=== PATIENT | male | born 1990 | race Caucasian/White ===

== ENCOUNTER 2018-05-11 11:41 | Inpatient (IN) | payer OTHER ==
[~2018-05-11] VITALS: Ht 190.5 cm; Wt 86.9 kg
[2018-05-11] MEDS ORDERED: MORPHINE SULFATE 4 MG/ML, 1ML ONE ×2 (11:49→12:13)
[2018-05-11] MEDS ORDERED: ONDANSETRON 2MG/ML, 2ML ONE ×2 (11:49→17:12)
[2018-05-11] MEDS: MORPHINE SULFATE 4 MG/ML, 1ML IVPush PRN ×2 (11:53→12:16)
[2018-05-11] MEDS ORDERED: SODIUM CHLORIDE FLUSH 10ML SYR IVF ONE (12:00)
[2018-05-11] MEDS ORDERED: PLEASE ENTER ALLERGIES MC SCH (12:00)
[2018-05-11] MEDS ORDERED: ONDANSETRON 2MG/ML, 2ML IVPush ONE (12:00)
[2018-05-11] MEDS ORDERED: PRED5TAB PO (12:26)
[2018-05-11] MEDS ORDERED: HYDROmorphone 2 MG/ML, 1ML ONE ×6 (12:37→23:46)
[2018-05-11] MEDS ORDERED: HYDROmorphone 1 MG/ML, 1ML IV ONE ×2 (13:00→14:00)
[2018-05-11] MEDS ORDERED: HYDROmorphone 1 MG/ML, 1ML IV PRN (16:00)
[2018-05-11] MEDS ORDERED: GABAPENTIN 300 MG CAPSULE ONE (17:07)
[2018-05-11] MEDS ORDERED: OxyconTIN ER 20 MG TAB.ER ONE (17:07)
[2018-05-11] MEDS ORDERED: ACETAMINOPHEN 500 MG TABLET ONE (17:07)
[2018-05-11] MEDS ORDERED: HYDROCORTISONE 100 MG INJ. ONE (17:10)
[2018-05-11] MEDS ORDERED: ROCURONIUM 10 MG/ML,10ML ONE (17:12)
[2018-05-11] MEDS ORDERED: PROPOFOL 10 MG/ML, 20ML ONE (17:12)
[2018-05-11] MEDS ORDERED: GLYCOPYRROLATE 0.2MG/1ML, 5ML ONE (17:12)
[2018-05-11] MEDS ORDERED: NEOSTIGMINE 1 MG/ML, 10ML ONE (17:12)
[2018-05-11] MEDS ORDERED: CEFAZOLIN 1,000 MG ONE (17:12)
[2018-05-11] MEDS ORDERED: FENTANYL PF 250 MCG/5ML ONE (17:15)
[2018-05-11] MEDS ORDERED: MEPERIDINE/PF 50 MG/ML ONE (19:01)
[2018-05-11] MEDS: MEPERIDINE/PF 25MG/0.5ML IVPush PRN ×2 (19:07→19:40)
[2018-05-11] MEDS: HYDROmorphone 1 MG/ML, 1ML IV PRN ×4 (19:09→19:30)
[2018-05-11] MEDS ORDERED: FENTANYL PF 100 MCG/2ML ONE ×2 (19:10→19:31)
[2018-05-11] MEDS: FENTANYL PF 100 MCG/2ML IV PRN ×4 (19:13→19:43)
[2018-05-11] MEDS ORDERED: LABETALOL 5MG/ML, 20ML IV PRN (19:30)
[2018-05-11] MEDS ORDERED: LORazepam 2 MG/ML, 1ML IVPush PRN (19:30)
[2018-05-11] MEDS ORDERED: OXYcodone 5 MG/5 ML ORAL.SOL UDC PO PRN ×2 (19:30→21:30)
[2018-05-11] MEDS ORDERED: ALBUTEROL SULFATE 2.5 MG/3 ML NPPB PRN (19:30)
[2018-05-11] MEDS ORDERED: hydrALAzine 20 MG/ML, 1ML IV PRN (19:30)
[2018-05-11] MEDS ORDERED: PROMETHAZINE 25 MG/ML, 1ML IV PRN (19:30)
[2018-05-11] MEDS ORDERED: OXYcodone 5 MG/5 ML ORAL.SOL UDC ONE (19:31)
[2018-05-11] MEDS ORDERED: MAGNESIUM HYDROXIDE 8%, 30ML UDC PO PRN (21:30)
[2018-05-11] MEDS ORDERED: SENNA/DOCUSATE TABLET PO PRN (21:30)
[2018-05-11] MEDS: D5%-LACTATED RINGERS 1,000 ML IV SCH (21:30)
[2018-05-11] MEDS ORDERED: ONDANSETRON 2MG/ML, 2ML IV PRN (21:30)
[2018-05-11] MEDS ORDERED: ALUMINUM/MAG/SIMETHICONE 30 ML UDC PO PRN (21:30)
[2018-05-11] MEDS ORDERED: BISACODYL 10 MG SUPP PR PRN (21:30)
[2018-05-11] MEDS ORDERED: DIPHENHYDRAMINE 25 MG CAPSULE PO PRN (21:30)
[2018-05-11] MEDS: HYDROcodone/APAP 10/325 MG TABLET PO PRN (21:57)
[2018-05-12 00:41] VITALS: BP 105/48
[2018-05-12] MEDS: HYDROcodone/APAP 10/325 MG TABLET PO PRN ×3 (02:23→12:03)
[2018-05-12] MEDS: CEFAZOLIN PMX 2GM/50ML 50 ML IVPB SCH ×3 (02:23→19:38)
[2018-05-12] MEDS ORDERED: HYDROmorphone 2 MG/ML, 1ML ONE ×3 (05:49→14:28)
[2018-05-12] MEDS: HYDROmorphone 1 MG/ML, 1ML IV PRN ×3 (05:58→14:36)
[2018-05-12] MEDS: D5%-LACTATED RINGERS 1,000 ML IV SCH ×3 (06:00→20:43)
[2018-05-12 07:40] VITALS: BP 125/62
[2018-05-12] MEDS: SODIUM CHLORIDE FLUSH 10ML SYR IVF SCH ×2 (09:21→20:35)
[2018-05-12] MEDS: MULTIVITAMINS/MINERALS TABLET PO SCH (09:22)
[2018-05-12] MEDS: DOCUSATE 100 MG CAPSULE PO SCH ×2 (09:22→20:40)
[2018-05-12] MEDS: OXYcodone IR 5MG TABLET PO PRN ×3 (15:43→19:33)
[2018-05-12 15:45] VITALS: BP 130/72
[2018-05-12 19:44] VITALS: BP 144/79
[2018-05-12] MEDS: DIAZEPAM 5 MG TABLET PO PRN (20:40)
[2018-05-13] MEDS: D5%-LACTATED RINGERS 1,000 ML IV SCH ×3 (02:57→21:00)
[2018-05-13] MEDS: CEFAZOLIN PMX 2GM/50ML 50 ML IVPB SCH ×3 (03:28→19:32)
[2018-05-13 03:51] VITALS: BP 122/63
[2018-05-13] MEDS: OXYcodone IR 5MG TABLET PO PRN ×5 (04:05→19:41)
[2018-05-13] MEDS: DIAZEPAM 5 MG TABLET PO PRN ×4 (04:05→21:27)
[2018-05-13 07:21] VITALS: BP 130/73
[2018-05-13] MEDS: SODIUM CHLORIDE FLUSH 10ML SYR IVF SCH ×2 (09:00→20:45)
[2018-05-13] MEDS: DOCUSATE 100 MG CAPSULE PO SCH ×2 (09:22→21:03)
[2018-05-13] MEDS: MULTIVITAMINS/MINERALS TABLET PO SCH (09:22)
[2018-05-13 14:00] VITALS: BP 125/73
[2018-05-13 20:10] VITALS: BP 136/82
[2018-05-14 01:25] VITALS: BP 118/73
[2018-05-14] MEDS: CEFAZOLIN 2,000 MG in SODIUM CHLORIDE 0.9% 50 ML IVPB SCH ×3 (03:34→19:48)
[2018-05-14] MEDS: OXYcodone IR 5MG TABLET PO PRN ×4 (03:34→22:21)
[2018-05-14] MEDS: D5%-LACTATED RINGERS 1,000 ML IV SCH ×3 (04:55→18:32)
[2018-05-14 07:42] VITALS: BP 133/75
[2018-05-14] MEDS ORDERED: OXYcodone 5 MG/5 ML ORAL.SOL UDC ONE (09:25)
[2018-05-14] MEDS: MULTIVITAMINS/MINERALS TABLET PO SCH (09:28)
[2018-05-14] MEDS: DOCUSATE 100 MG CAPSULE PO SCH ×2 (09:28→21:06)
[2018-05-14] MEDS: SODIUM CHLORIDE FLUSH 10ML SYR IVF SCH ×2 (09:29→21:00)
[2018-05-14] MEDS: DIAZEPAM 5 MG TABLET PO PRN ×2 (14:48→21:05)
[2018-05-14 14:51] VITALS: BP 124/81
[2018-05-14 20:17] VITALS: BP 146/79
[2018-05-14] MEDS: ACETAMINOPHEN 325 MG TABLET PO PRN (21:06)
[2018-05-15 02:25] VITALS: BP 119/75
[2018-05-15] MEDS: CEFAZOLIN 2,000 MG in SODIUM CHLORIDE 0.9% 50 ML IVPB SCH ×2 (04:03→11:33)
[2018-05-15] MEDS: DIAZEPAM 5 MG TABLET PO PRN ×2 (04:05→08:40)
[2018-05-15] MEDS: D5%-LACTATED RINGERS 1,000 ML IV SCH (06:27)
[2018-05-15] MEDS: OXYcodone IR 5MG TABLET PO PRN (06:38)
[2018-05-15] MEDS: ACETAMINOPHEN 325 MG TABLET PO PRN (06:38)
[2018-05-15 07:03] VITALS: BP 128/85
[2018-05-15] MEDS: DOCUSATE 100 MG CAPSULE PO SCH (08:39)
[2018-05-15] MEDS: MULTIVITAMINS/MINERALS TABLET PO SCH (08:40)
[2018-05-15] MEDS: SODIUM CHLORIDE FLUSH 10ML SYR IVF SCH (08:40)
[2018-05-15 11:10] VITALS: BP 117/72
[2018-05-15 12:18] VITALS: BP 129/79
[2018-05-15] MEDS ORDERED: ASPI-650 PO (13:05)
[2018-05-15] MEDS ORDERED: OXYC-307 PO (13:05)
[2018-05-15] MEDS ORDERED: SULF1TAB24 PO (13:05)
[2018-05-15 13:13] VITALS: BP 85/50
== END 2018-05-15 13:25 | disposition home or self-care (01) | DRG 505 ==
LOC: ED 15:01 → EDIP 15:02 → ED 15:50 → 4NOR 20:30 → DCLOUNGE 05-15 13:04
PROVIDERS: ADMIT Orthopaedic Surgery; ATTEND Orthopaedic Surgery
PROC: 0QSP35Z Reposition Left Metatarsal with External Fixation Device, Percutaneous Approach (ICD-10-PCS; 2018-05-11)
PROC: 0QSM35Z Reposition Left Tarsal with External Fixation Device, Percutaneous Approach (ICD-10-PCS; principal; 2018-05-11 16:30)
DX: S92.062A Displaced intraarticular fracture of left calcaneus, initial encounter for closed fracture (principal); S92.122A Displaced fracture of body of left talus, initial encounter for closed fracture; S92.212A Displaced fracture of cuboid bone of left foot, initial encounter for closed fracture; S92.332A Displaced fracture of third metatarsal bone, left foot, initial encounter for closed fracture; S92.112A Displaced fracture of neck of left talus, initial encounter for closed fracture; S92.342A Displaced fracture of fourth metatarsal bone, left foot, initial encounter for closed fracture; S92.352A Displaced fracture of fifth metatarsal bone, left foot, initial encounter for closed fracture; S92.322A Displaced fracture of second metatarsal bone, left foot, initial encounter for closed fracture; Y93.01 Activity, walking, marching and hiking; S92.222A Displaced fracture of lateral cuneiform of left foot, initial encounter for closed fracture; W23.0XXA Caught, crushed, jammed, or pinched between moving objects, initial encounter; F17.210 Nicotine dependence, cigarettes, uncomplicated; Y92.69 Other specified industrial and construction area as the place of occurrence of the external cause; Y99.0 Civilian activity done for income or pay
CPT/HCPCS: 36415; 73610; 73620; 73630; 76001; 99285; J3490; J7121; 85014; 85018; C1713; G0378; J0690; J1170; J2175; J2405; J2704; J2710; J3010; J1720; J7512